=== PATIENT | female | born 1970 | race Caucasian/White ===

== ENCOUNTER 2022-04-15 04:28 | Emergency (ER) | payer OTHER ==
[~2022-04-15] VITALS: Ht 165.1 cm; Wt 63.5 kg
[2022-04-15] MEDS ORDERED: ONDANSETRON HCL 4 MG ORAL DISINTEGRATING TAB ONE (04:57)
[2022-04-15] MEDS ORDERED: IBUPROFEN 600 MG TAB PO STA (05:05)
[2022-04-15] MEDS ORDERED: TAMIFLU6 MG/1 ML PO (05:11)
[2022-04-15] MEDS ORDERED: PROMETHAZINE HC25 M1 PO (05:12)
[2022-04-15] MEDS ORDERED: ONDANSETRON HCL 4 MG ORAL DISINTEGRATING TAB PO ONE (05:15)
[2022-04-15] MEDS ORDERED: PROMETHAZINE HCL (IM) 25 MG/ML VIAL IM ONE ×2 (05:24→05:30)
== END 2022-04-15 05:49 | disposition home or self-care (01) ==
LOC: FSED 04:52
DX: J10.1 Influenza due to other identified influenza virus with other respiratory manifestations (principal)
CPT/HCPCS: 87400; 99283; J2550; Q0162